=== PATIENT | male | born 1950 | race Caucasian/White ===

== ENCOUNTER → 2019-04-26 | Outpatient (CLI) | payer MEDICARE ==
--- NOTE | 2019-04-26 12:23 | EST ---
EXERCISE STRESS AGE: 69 SEX: M HT: 69" WT: 214 PROTOCOL: Delfino Stress Test STAGE: 2 DURATION OF EXERCISE: 6:00 HEART RATE REST: 81 BLOOD PRESSURE REST: 131/73 MAXIMUM HEART RATE ACHIEVED: 133 MAXIMUM BLOOD PRESSURE: 191/75 85% MPHR: 128 100% MPHR: 150 METS: 6.9 INDICATIONS: Chest pain/hypertension. CLINICAL INFORMATION: Patient was exercised for a total period of 6 minutes, peak heart rate of 133 was achieved. Maximum blood pressure of 191/75 mmHg was noted. Resting EKG shows normal sinus rhythm with normal GA interval and QRS duration and normal ST-T waves. No ST- segment depression suggestive of ischemia is noted. Intermittent PVCs were noted. Occasional ventricular couplets were noted. FINAL IMPRESSION: 1. This exercise test shows equivocal upsloping ST-segment changes which are not diagnostic of ischemia. 2. Patient's exercise tolerance is average. 3. Intermittent premature ventricular contractions with a few episodes of ventricular couplets were noted during exercise. MMODL / IJN: [id number] /
== END | disposition home or self-care (01) ==
LOC: RADNMMAIN 10:36
PROVIDERS: ATTEND Family Medicine
DX: R94.31 Abnormal electrocardiogram [ECG] [EKG] (principal)
CPT/HCPCS: 93017

== ENCOUNTER → 2019-07-27 | Outpatient (CLI) | payer MEDICARE ==
--- NOTE | 2019-07-27 12:10 | XR ---
Cervical spine Limited HISTORY: Ankylosing hyperostosis, neck pain 4 views of the cervical spine Cervical vertebral bodies show preserved height, alignment, bone mineralization. Loss of normal cervi annie lordosis is present. C7-T1 not well seen. Disc heights are maintained. Hypertrophic anterior oste ophytes are present. Suspect there is some facet arthropathy. No fracture or subluxation evident. Pro bable vascular calcifications within the carotid artery distribution. IMPRESSION: Findings may be due to diffuse idiopathic skeletal hyperostosis.
== END | disposition home or self-care (01) ==
LOC: RADXRMAIN 10:31
PROVIDERS: ATTEND Family Medicine
DX: M48.10 Ankylosing hyperostosis [Forestier], site unspecified (principal)
CPT/HCPCS: 72040

== ENCOUNTER → 2020-04-15 | Outpatient (CLI) | payer MEDICARE ==
--- NOTE | 2020-04-15 11:35 | US ---
EXAMINATION TYPE: US abdomen limited DATE OF EXAM: 04/15/2020 COMPARISON: NONE CLINICAL HISTORY: R10.11 RUQ PAIN. RUQ pain EXAM MEASUREMENTS: Liver Length: 14.9 cm Gallbladder Wall: 0.2 cm CBD: 0.5 cm Right Kidney: 10.9 x 5.3 x 5.6 cm overlying bowel gas obscures imaging Pancreas: limited views appear wnl Liver: wnl Gallbladder: fundal fold, wnl Evidence for sonographic Guevara's sign: no CBD: wnl Right Kidney: wnl IMPRESSION: No significant abnormality appreciated.
== END | disposition home or self-care (01) ==
LOC: RADUSWWP 10:35
PROVIDERS: ATTEND Family Medicine
DX: R10.11 Right upper quadrant pain (principal)
CPT/HCPCS: 76705

== ENCOUNTER 2020-11-04 12:35 | Observation (INO) | payer MEDICARE ==
[2020-11-04] MEDS ORDERED: SODIUM CHLORIDE 0.9% 250 ML IV ONE (12:57)
[2020-11-04 13:24] LABS: Glucose,Whole Blood 193 mg/dL (75-99)
[2020-11-04] MEDS ORDERED: LIDOCAINE 1% INJ 10MG/ML (20 ML MDV) ONE (13:59)
[2020-11-04] MEDS ORDERED: VERAPAMIL 2.5 MG/ML 2 ML AMP ONE (13:59)
[2020-11-04] MEDS ORDERED: LIDOCAINE 1% INJ 10MG/ML (20 ML MDV) SQ ONE (14:01)
[2020-11-04] MEDS ORDERED: BIVALIRUDIN BOLUS 250 MG/50 ML IV ONE (14:02)
[2020-11-04] MEDS ORDERED: BIVALIRUDIN 250 MG in SODIUM CHLORIDE 0.9% 50 ML IV ONE (14:04)
[2020-11-04] MEDS ORDERED: MIDAZOLAM 2 MG/2 ML VIAL IV ONE (14:04)
[2020-11-04] MEDS ORDERED: CLOPIDOGREL 75 MG TAB ONE (14:21)
[2020-11-04] MEDS ORDERED: CLOPIDOGREL 75 MG TAB PO ONE (14:26)
[2020-11-04] MEDS ORDERED: NITROGLYCERIN 1000MCG/10ML SYRINGE INTRACORON ONE (14:27)
[2020-11-04] MEDS ORDERED: IOPAMIDOL-370 125ML BTL INJ ONE (14:29)
[2020-11-04] MEDS ORDERED: MAG HYDROX/AL HYDROX/SIMETH 30 ML CUP PO PRN (14:43)
[2020-11-04] MEDS ORDERED: ATROPINE SULFATE 0.1 MG/ML 10ML SYRINGE IV PRN (14:43)
[2020-11-04] MEDS ORDERED: RX INFO: IV CONTRAST WAS GIVEN 1 EACH MISC MISCELLANE PRN (14:43)
[2020-11-04] MEDS ORDERED: ZOLPIDEM 5 MG TAB PO PRN (14:43)
[2020-11-04] MEDS ORDERED: NITROGLYCERIN SL TABS 0.4 MG TAB SUBLINGUAL PRN (14:43)
[2020-11-04 17:07] LABS: Glucose,Whole Blood 223 mg/dL (75-99)
[2020-11-04] MEDS: SODIUM CHLORIDE 0.9% 1,000 ML IV SCH (17:14)
[2020-11-04] MEDS ORDERED: ATORVASTATIN 80 MG TAB PO SCH (21:00)
[2020-11-04] MEDS: METOPROLOL TARTRATE 25 MG TAB PO SCH (21:02)
[2020-11-04 21:17] LABS: Glucose,Whole Blood 162 mg/dL (75-99)
--- NOTE | 2020-11-04 23:42 | PTCA ---
PERCUTANEOUSTRANS CORORONARY ANGIOGRAPHY DATE OF SERVICE: November 04, 2020. PERFORMING PHYSICIAN: Luke Callejas MD. PROCEDURE PERFORMED: Successful stenting of the first obtuse marginal branch of left circumflex using 2.0 x 12 mm Evans drug-eluting stent with an excellent angiographic results and reduction of stenosis from 90% to 0%. INDICATION: This is a 70-year-old gentleman with diabetes and hypertension and history of smoking, who was experiencing symptoms of chest discomfort. He underwent a heart catheterization today and that revealed critical disease involving OM1 of the left circumflex. APPROACH: Right radial artery. COMPLICATION: None. LEVEL OF SEDATION: Moderate with sedation length of 22 minutes. PROCEDURE DESCRIPTION: Please refer to the diagnostic heart catheterization was performed at [facility]. Anticoagulation was initiated using Angiomax. Subsequently, I did engage the left main using an XB 3 guide. The left circumflex was wired using a run-through wire. The whisper wire initially did not cross the lesion, so I placed in the left circumflex as an anchoring wire. Balloon angioplasty was performed using 2.0 x 12 mm balloon before I deployed 2.0 x 12 mm Evans drug-eluting stent where the stent was positioned under fluoroscopy guidance and deployed under 16 atmospheres for 20 seconds with the following angiogram showed excellent angiographic results. POSTPROCEDURE MANAGEMENT: 1. Dual anti-platelet therapy. 2. Risk factor modifications. 3. Follow up with the patient. LEXUS / ZORA: [id number] /
[2020-11-05] MEDS: SODIUM CHLORIDE 0.9% 1,000 ML IV SCH (04:55)
[2020-11-05 06:00] LABS: Glucose,Whole Blood 201 mg/dL (75-99)
[2020-11-05] MEDS: METOPROLOL TARTRATE 25 MG TAB PO SCH (07:58)
[2020-11-05 08:02] VITALS: BP 147/70; PULSE 64; RESP 18; TEMP 97.9
[2020-11-05 08:10] LABS: Basophils # (A) 0.1 k/uL (0-0.2); Basophils % (A) 1 %; Eosinophils # (A) 0.3 k/uL (0-0.7); Eosinophils % (A) 6 %; HCT 40.8 % (39.0-53.0); HGB 13.3 gm/dL (13.0-17.5); Lymphocytes # (A) 1.7 k/uL (1.0-4.8); Lymphocytes % (A) 31 %; MCHC 32.5 g/dL (31.0-37.0); MCV 95.3 fL (80.0-100.0); Mean Platelet Volume 8.5; Monocytes # (A) 0.3 k/uL (0-1.0); Monocytes % (A) 6 %; Neutrophils # (A) 3.1 k/uL (1.3-7.7); Neutrophils % (A) 56 %; Platelet Count 167 k/uL (150-450); RBC 4.28 m/uL (4.30-5.90); WBC 5.7 k/uL (3.8-10.6)
[2020-11-05 08:21] LABS: African American GFR (CKD) >90 (>60 ml/min/1.73 sqM); Anion Gap 5 mmol/L; Blood Urea Nitrogen 23 mg/dL (9-20); Calcium 8.6 mg/dL (8.4-10.2); Carbon Dioxide 27 mmol/L (22-30); Chloride 103 mmol/L (98-107); Glucose 246 mg/dL (74-99); Non-African American GFR(CKD) 89 (>60 ml/min/1.73 sqM); Potassium 4.6 mmol/L (3.5-5.1); Sodium 135 mmol/L (137-145)
[2020-11-05] MEDS ORDERED: CLOPIDOGREL 75 MG TAB PO SCH (09:00)
[2020-11-05] MEDS ORDERED: ASPIRIN 325 MG TAB PO SCH (09:00)
--- NOTE | 2020-11-05 20:27 | DS ---
DISCHARGE SUMMARY BRIEF HISTORY: The patient is a 70-year-old gentleman with diabetes and history of smoking who was experiencing symptoms of chest discomfort. He underwent heart catheterization yesterday at [facility] and that revealed critical disease involving the left circumflex. He was transferred to [facility], where he underwent stenting of the left circumflex with an excellent angiographic result and without any complication. The patient was seen today. He is asymptomatic. The right radial artery is soft with small hematoma. The patient is going to be discharged home on dual anti-platelet therapy, and I will follow up with the patient next week in the office. MMODL / IJN: [id number] /
== END 2020-11-05 10:03 | disposition home or self-care (01) ==
LOC: 3SCARD 12:35 → INTOOBSV 12:35 → 3SCARD 15:50 → UNDODISIN 11-05 10:03
PROVIDERS: ADMIT Internal Medicine Interventional Cardiology; ATTEND Internal Medicine Interventional Cardiology
DX: I25.10 Atherosclerotic heart disease of native coronary artery without angina pectoris (principal); I10 Essential (primary) hypertension; E78.5 Hyperlipidemia, unspecified; I49.3 Ventricular premature depolarization; E13.9 Other specified diabetes mellitus without complications; E66.9 Obesity, unspecified; Z79.899 Other long term (current) drug therapy; Z79.82 Long term (current) use of aspirin; Z68.34 Body mass index [BMI] 34.0-34.9, adult; Z87.891 Personal history of nicotine dependence
CPT/HCPCS: 80048; 85025; G0378 ×2; G0379; C9600; C1769 ×5; C1725; C1887; C1874; C1894; J2250; J2001; J0583; Q9967

== ENCOUNTER 2023-12-26 16:44 | Emergency (ER) | payer MEDICARE ==
[2023-12-26 17:08] VITALS: TEMP 97.3
--- NOTE | 2023-12-26 17:23 | ED ---
Abdominal Pain HPI - General Chief Complaint: Abdominal Pain Stated Complaint: Difficulty urinating, pain in prostate Time Seen by Provider: 12/26/23 16:53 Source: patient Mode of arrival: ambulatory Limitations: no limitations - History of Present Illness Initial Comments: This patient is 73-year-old man who complains of suprapubic pain and urge to uri sylvester as well as inability to pass urine. Patient states that he had transurethral prostate resection December [address] Rucker. He states he had been doing relatively well until last night when he noticed that he wasn't urinating well. They continued this morning. The patient states that he tried pressing on his belly and he was able to get out a small amount of urine with a trace of blood and what he thought was a small clot. Patient has not noted urinary symptoms prior to that. He was not having fevers or chills. No dysuria. No back or flank pain. MD Complaint: abdominal pain -: hour(s) Location: suprapubic Radiation: none Migration to: no migration Severity: moderate Quality: fullness Consistency: constant Improves With: nothing Worsens With: nothing Associated Symptoms: other - Related Data Home Medications Medication Instructions Recorded Confirmed Aspirin EC [Ecotrin Low Dose] 81 mg PO HS 11/04/20 11/04/20 Cod Liver Oil 1 cap PO DAILY 11/04/20 11/04/20 L.acidoph,Paracasei, B.lactis 1 cap PO DAILY 11/04/20 11/04/20 [Probiotic] Loratadine [Claritin] 10 mg PO DAILY PRN 11/04/20 11/04/20 Oregano 1 tab PO DAILY PRN 11/04/20 11/04/20 Turmeric Root Extract [Turmeric] 500 mg PO DAILY PRN 11/04/20 11/04/20 Vitamin C/Magnesium 1 tab PO DAILY PRN 11/04/20 11/04/20 Zinc 50 mg PO Q48H 11/04/20 11/04/20 lisinopriL [Prinivil] 10 mg PO HS 11/04/20 11/04/20 Previous Rx's Medication Instructions Recorded Atorvastatin [Lipitor] 80 mg PO HS #90 tab 11/05/20 Clopidogrel [Plavix] 75 mg PO DAILY #90 tab 11/05/20 Doxycycline [Vibramycin] 100 mg PO BID 1 Days #14 capsule 02/26/24 Allergies Allergy/AdvReac Type Severity Reaction Status Date / Time fenofibrate AdvReac Confusion Verified 12/26/23 16:50 metformin AdvReac Nausea & Verified 12/26/23 16:50 Vomiting & Diarrhea Review of Systems ROS Statement: Those systems with pertinent positive or pertinent negative responses have been documented in the HPI. ROS Other: All systems not noted in ROS Statement are negative. Constitutional: Denies: fever, chills Respiratory: Denies: cough, dyspnea Cardiovascular: Denies: chest pain, palpitations, edema Gastrointestinal: Reports: as per HPI, abdominal pain. 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 History of Any Multi-Drug Resistant Organisms: None Reported Past Surgical History: Heart Catheterization With Stent Additional Past Surgical History / Comment(s): cataract surgery, heart cath 11/04 Additional Past Anesthesia/Blood Transfusion Reaction / Comment(s): No history of blood transfusion Date of Last Stent Placement:: 11/04/20 Past Psychological History: No Psychological Hx Reported Smoking Status: Former smoker - Past Family History Mother Additional Family Medical History / Comment(s): carbon monoxide poisoning Father Family Medical History: Congestive Heart Failure (CHF) General Exam Limitations: no limitations General appearance: alert, in no apparent distress Head exam: Present: atraumatic, normocephalic Eye exam: Present: normal appearance. Absent: scleral icterus, conjunctival injection Neck exam: Present: normal inspection Respiratory exam: Present: normal lung sounds bilaterally. Absent: respiratory distress, wheezes, rales, rhonchi, stridor Cardiovascular Exam: Present: regular rate, normal rhythm, normal heart sounds. Absent: systolic murmur, diastolic murmur, rubs, gallop GI/Abdominal exam: Present: soft, tenderness, guarding (Suprapubic). Absent: distended, rebound, rigid, hernia Extremities exam: Present: normal inspection, normal capillary refill. Absent: pedal edema, calf tenderness Back exam: Present: normal inspection. Absent: CVA tenderness (R), CVA tenderness (L) Neurological exam: Present: alert Skin exam: Present: warm, dry, intact, normal color. Absent: rash Course Vital Signs 12/26/23 12/26/23 16:45 18:40 Temperature 97.3 F L Pulse Rate 117 H 83 Respiratory 20 18 Rate Blood Pressure 200/108 141/64 O2 Sat by Pulse 98 97 Oximetry Medical Decision Making - Medical Decision Making Patient is 73-year-old man presenting with acute urinary retention. He did have relief of symptoms after Roper catheter placed and urine was fluid freely draining. There does appear to be urinary tract infection and patient started on a course of antibiotics. Discussed appropriate further care and follow-up as well as return parameters Was pt. sent in by a medical professional or institution (MAGEN Garcia, BUSINESS DEVELOPER, urgent care, hospital, or prison...) When possible be specific @ -[No] Did you speak to anyone other than the patient for history (EMS, parent, family, police, friend...)? What history was obtained from this source @ -[No] Did you review nursing and triage notes (agree or disagree)? Why? @ -[I reviewed and agree with nursing and triage notes] Were old charts reviewed (outside hosp., previous admission, EMS record, old EKG, old radiological studies, urgent care reports/EKG's, prison records)? Report findings @ -[No old charts were reviewed] Differential Diagnosis (chest pain, altered mental status, abdominal pain women, abdominal pain men, vaginal bleeding, weakness, fever, dyspnea, syncope, headache, dizziness, GI bleed, back pain, seizure, CVA, palpatations, mental health, musculoskeletal)? @ -[Differential Abdominal Pain Men: Appendicitis, diverticulosis, pancreatitis, UTI, AAA, incarcerated hernia, bowel obstruction, constipation, acute urinary retention, testicular torsion, this is not meant to be an all-inclusive list EKG interpreted by me (3pts min.). @ -[As above] X-rays interpreted by me (1pt min.). @ -[None done] CT interpreted by me (1pt min.). @ -[None done] U/S interpreted by me (1pt. min.). @ -[None done] What testing was considered but not performed or refused? (CT, X-rays, U/S, labs)? Why? @ -[None] What meds were considered but not given or refused? Why? @ -[None] Did you discuss the management of the patient with other professionals (professionals i.e. , PA, BUSINESS DEVELOPER, lab, RT, psych nurse, 7th grade social studies teacher, hydro plant technician, teacher, motorcycle police officer, therapeutic case manager)? Give summary @ -[No] Was smoking cessation discussed for >3mins.? @ -[No] Was critical care preformed (if so, how long)? @ -[No] Were there social determinants of health that impacted care today? How? (Homelessness, low income, unemployed, alcoholism, drug addiction, transportation, low edu. Level, literacy, decrease access to med. care, long term, rehab)? @ -[No] Was there de-escalation of care discussed even if they declined (Discuss DNR or withdrawal of care, Hospice)? DNR status @ -[No] What co-morbidities impacted this encounter? (DM, HTN, Smoking, COPD, CAD, Cancer, CVA, ARF, Chemo, Hep., AIDS, mental health diagnosis, sleep apnea, morbid obesity)? @ -[Prostatic hypertrophy with recent surgical treatment Was patient admitted / discharged? Hospital course, mention meds given and r oute, prescriptions, significant lab abnormalities, going to OR and other pertinent info. @ -[As above Undiagnosed new problem with uncertain prognosis? @ -[No] Drug Therapy requiring intensive monitoring for toxicity (Heparin, Nitro, Insulin, Cardizem)? @ -[No] Were any procedures done? @ -[No] Diagnosis/symptom? @ -[default] Acute, or Chronic, or Acute on Chronic? @ -[Acute urinary retention Acute urinary tract infection Uncomplicated (without systemic symptoms) or Complicated (systemic symptoms)? @ -[Complicated Side effects of treatment? @ -[No] Exacerbation, Progression, or Severe Exacerbation? @ -[No] Poses a threat to life or bodily function? How? (Chest pain, [place], [place], pneumonia, PE, COPD, DKA, ARF, appy, cholecystitis, CVA, Diverticulitis, Homicidal, Suicidal, threat to staff... and all critical care pts) @ -[No] - Lab Data Lab Results 12/26/23 Range/Units 17:27 Urine Color Colorless Urine Appearance Cloudy (Clear) Urine pH 5.5 (5.0-8.0) Ur Specific Mcalester 1.023 (1.001-1.035) Urine Protein 1+ H (Negative) Urine Glucose (UA) 4+ H (Negative) Urine Ketones Negative (Negative) Urine Blood Large H (Negative) Urine Nitrite Negative (Negative) Urine Bilirubin Negative (Negative) Urine Urobilinogen <2.0 (<2.0) mg/dL Ur Leukocyte Esterase Large H (Negative) Urine RBC 67 H (0-5) /hpf Urine WBC >182 H (0-5) /hpf Urine WBC Clumps Moderate H (None) /hpf Urine Bacteria Rare H (None) /hpf Disposition Clinical Impression: Urinary retention, Urinary tract infection Disposition: HOME SELF-CARE Condition: Good Instructions (If sedation given, give patient instructions): Urinary Retention in Men (ED), Urinary Tract Infection in Men (ED) Prescriptions: Doxycycline [Vibramycin] 100 mg PO BID 1 Days #14 capsule Is patient prescribed a controlled substance at d/c from ED?: No Referrals: Fransisco Jorgensen DO [Primary Care Provider] - 1-2 days Edwin Rice MD [STAFF PHYSICIAN] - 1-2 days
[2023-12-26] MEDS: LIDOCAINE 2% URO-JET JELLY 5 ML KIT URETHRAL ONE (17:25)
[2023-12-26 17:57] LABS: Appearance,Urine Cloudy (Clear); Bacteria,Urine Rare /hpf; Bilirubin,Urine Negative (Negative); Blood,Urine Large (Negative); Color,Urine Colorless; Glucose,Urine (UA) 4+ (Negative); Ketones,Urine Negative (Negative); Leukocyte Esterase,Urine Large (Negative); Nitrite,Urine Negative (Negative); PH, Urine 5.5 (5.0-8.0); Protein,Urine 1+ (Negative); RBC,Urine 67 /hpf (0-5); Specific Gravity,Urine 1.023 (1.001-1.035); Urobilinogen,Urine <2.0 mg/dL (<2.0); WBC,Urine >182 /hpf (0-5)
[2023-12-26] MEDS: DOXYCYCLINE 100 MG CAP PO STA (18:38)
[2023-12-26 19:00] VITALS: BP 141/64; PULSE 83; RESP 18
== END 2023-12-26 18:42 | disposition home or self-care (01) ==
LOC: EC 16:44
DX: N39.0 Urinary tract infection, site not specified (principal); R33.9 Retention of urine, unspecified; I25.10 Atherosclerotic heart disease of native coronary artery without angina pectoris; E11.9 Type 2 diabetes mellitus without complications; I10 Essential (primary) hypertension; Z87.891 Personal history of nicotine dependence; Z79.82 Long term (current) use of aspirin; Z79.899 Other long term (current) drug therapy; Z88.8 Allergy status to other drugs, medicaments and biological substances
CPT/HCPCS: 51702; 51798; 81001; 99284

== ENCOUNTER 2023-12-27 12:27 | Emergency (ER) | payer MEDICARE ==
[2023-12-27 12:59] VITALS: BP 124/73; PULSE 91; RESP 18; TEMP 98.8
--- NOTE | 2023-12-27 13:51 | ED ---
Male Urogenital HPI - General Chief complaint: Urogenital Stated complaint: Cath Issues Time Seen by Provider: 12/27/23 12:37 Source: patient, RN notes reviewed Mode of arrival: ambulatory Limitations: no limitations - History of Present Illness Initial comments: Quick note-patient presents emergency department chief complaint of Roper catheter is blocked. Patient states he was seen here last night was placed on antibiotics. Patient states is not draining. - Related Data Home Medications Medication Instructions Recorded Confirmed Aspirin EC [Ecotrin Low Dose] 81 mg PO HS 11/04/20 11/04/20 Cod Liver Oil 1 cap PO DAILY 11/04/20 11/04/20 L.acidoph,Paracasei, B.lactis 1 cap PO DAILY 11/04/20 11/04/20 [Probiotic] Loratadine [Claritin] 10 mg PO DAILY PRN 11/04/20 11/04/20 Oregano 1 tab PO DAILY PRN 11/04/20 11/04/20 Turmeric Root Extract [Turmeric] 500 mg PO DAILY PRN 11/04/20 11/04/20 Vitamin C/Magnesium 1 tab PO DAILY PRN 11/04/20 11/04/20 Zinc 50 mg PO Q48H 11/04/20 11/04/20 lisinopriL [Prinivil] 10 mg PO HS 11/04/20 11/04/20 Previous Rx's Medication Instructions Recorded Atorvastatin [Lipitor] 80 mg PO HS #90 tab 11/05/20 Clopidogrel [Plavix] 75 mg PO DAILY #90 tab 11/05/20 Doxycycline [Vibramycin] 100 mg PO BID 1 Days #14 capsule 12/26/23 Allergies Allergy/AdvReac Type Severity Reaction Status Date / Time fenofibrate AdvReac Confusion Verified 12/26/23 16:50 metformin AdvReac Nausea & Verified 12/26/23 16:50 Vomiting & Diarrhea Review of Systems ROS Statement: Those systems with pertinent positive or pertinent negative responses have been documented in the HPI. ROS Other: All systems not noted in ROS Statement are negative. 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 History of Any Multi-Drug Resistant Organisms: None Reported Past Surgical History: Heart Catheterization With Stent Additional Past Surgical History / Comment(s): cataract surgery, heart cath 11/04 Additional Past Anesthesia/Blood Transfusion Reaction / Comment(s): No history of blood transfusion Date of Last Stent Placement:: 11/04/20 Past Psychological History: No Psychological Hx Reported Smoking Status: Former smoker Past Alcohol Use History: None Reported Past Drug Use History: None Reported - Past Family History Mother Additional Family Medical History / Comment(s): carbon monoxide poisoning Father Family Medical History: Congestive Heart Failure (CHF) General Exam - General Exam Comments Initial Comments: Visual Physical Exam Vital signs reviewed General: Well-appearing, nontoxic, no acute distress. Head: Normocephalic, atraumatic Eyes: PERRLA, EOMI ENT: Airway patent Chest: Nonlabored breathing Skin: No visual rash, normal skin tone Neuro: Alert and oriented 3 Musculoskeletal: No gross abnormalities Limitations: no limitations Course Vital Signs 12/27/23 12:33 Temperature 98.8 F Pulse Rate 91 Respiratory 18 Rate Blood Pressure 124/73 O2 Sat by Pulse 97 Oximetry Medical Decision Making - Medical Decision Making Patient left AMA Disposition Clinical Impression: Complication of Roper catheter Disposition: LEFT AGAINST MEDICAL ADVICE Referrals: Fransisco Jorgensen DO [Primary Care Provider] - 1-2 days
== END 2023-12-27 13:51 | disposition left against medical advice (07) ==
LOC: EC 12:27
DX: T83.091A Other mechanical complication of indwelling urethral catheter, initial encounter (principal); I10 Essential (primary) hypertension; E11.9 Type 2 diabetes mellitus without complications; I25.10 Atherosclerotic heart disease of native coronary artery without angina pectoris; Z79.82 Long term (current) use of aspirin; Z79.899 Other long term (current) drug therapy; Z87.891 Personal history of nicotine dependence; Z88.8 Allergy status to other drugs, medicaments and biological substances; Z53.29 Procedure and treatment not carried out because of patient's decision for other reasons
CPT/HCPCS: 99283

== ENCOUNTER 2025-05-22 11:00 | Day surgery (SDC) | payer MEDICARE ==
[2025-05-20 19:02] VITALS: BMI 28.9
[2025-05-22] MEDS: IV FLUID CONTINUATION 1,000 ML IV ONE (11:14)
[2025-05-22 11:21] VITALS: RESP 14; TEMP 97
[2025-05-22 11:32] LABS: Glucose,Whole Blood 105 mg/dL (70-110)
[2025-05-22] MEDS: LACTATED RINGERS 1,000 ML IV SCH (11:34)
[2025-05-22] MEDS ORDERED: PROPOFOL 10 MG/ML 20 ML VIAL IV ONE (12:19)
[2025-05-22] MEDS ORDERED: LIDOCAINE 2% (PF) 20 MG/ML 5 ML VIAL ONE (12:19)
--- NOTE | 2025-05-22 12:31 | P.PCN ---
Date of Procedure: 05/22/25 Procedure(s) Performed: BRIEF HISTORY: Patient is a 75-year-old, pleasant, white female scheduled for an upper endoscopy as a part of evaluation of intermittent dysphagia to solids past 3 months duration and longstanding history of GERD.. PROCEDURE PERFORMED: Esophagogastroduodenoscopy with biopsy. PREOPERATIVE DIAGNOSIS: GERD and intermittent dysphagia to solids. IV sedation per anesthesia. PROCEDURE: After informed consent was obtained, the patient was brought into the endoscopy unit. IV sedation was administered by Anesthesia under continuous monitoring. Initially the Olympus GIF-140 video endoscope was inserted into the mouth. Esophagus intubated without any difficulty. It was gradually advanced into the stomach and duodenum and carefully examined. The bulb and the second part of the duodenum appeared normal. The scope at this time was withdrawn to the stomach, adequately insufflated with air, and upon careful examination, mucosa of the antrum, body, cardia and the fundus appeared normal. The scope was then withdrawn into the esophagus. Small sliding-type hiatal hernia noted. The GE junction was located at 40 cm from the incisors. There was a widely patent distal esophageal Schatzki's ring identified that was dilated using 30 mm TTS balloon for 30 seconds. The esophagus appeared normal. There were no erosions or ulcerations seen. Biopsies were done from the mid and distal esophagus rule out eosinophilic esophagitis. The proximal cervical esophagus was carefully examined and there appeared to be some extrinsic compression possibly with bone spurs but no luminal pathology identified and the patient tolerated the procedure well. IMPRESSION: 1. Distal esophageal Schatzki's ring status post balloon dilation using 20 mm TTS balloon as described above 2. Small hiatal hernia. 3. 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 He was advised to be on clear liquids for 2 hours. Follow-up with the biopsy results. Continue with soft diet. Follow-up in the office in 3 to 4 weeks..
[2025-05-22 12:52] VITALS: BP 148/74; PULSE 65
== END 2025-05-22 13:09 | disposition home or self-care (01) ==
LOC: ORWHC2ENDO 11:00
PROVIDERS: ATTEND Internal Medicine Gastroenterology
DX: K21.00 Gastro-esophageal reflux disease with esophagitis, without bleeding (principal); K22.2 Esophageal obstruction; K44.9 Diaphragmatic hernia without obstruction or gangrene
CPT/HCPCS: 88305; 43249; 43239; J2704; J2003; C1726